=== PATIENT | female | born 1975 | race Caucasian/White ===

== ENCOUNTER 2021-08-30 10:20 | Outpatient (CLI) | payer OTHER | END 2021-08-30 10:21 | disposition home or self-care (01) | LOC: DTY/OP 10:20 | PROVIDERS: ATTEND Family Medicine | DX: E66.8 Other obesity (principal); L30.9 Dermatitis, unspecified; K58.9 Irritable bowel syndrome, unspecified; Z68.41 Body mass index [BMI] 40.0-44.9, adult | CPT/HCPCS: 97802 ==